=== PATIENT | male | born 1980 | race African-American/Black ===

== ENCOUNTER → 2022-03-16 | Emergency (ER) | payer SELFPAY | END | disposition left against medical advice (07) | LOC: ER 15:52 | DX: R52 Pain, unspecified (principal); Z53.21 Procedure and treatment not carried out due to patient leaving prior to being seen by health care provider ==

== ENCOUNTER 2022-06-11 11:25 | Emergency (ER) | payer SELFPAY ==
[~2022-06-11] VITALS: Ht 175.3 cm; Wt 65.4 kg
[2022-06-11 12:07] LABS: Basophils # (auto) 0.1 10 ^3/uL (0-0.2); Eosinophils # (auto) 0 10 ^3/uL (0-0.8); Eosinophils % (auto) 0.3 % (0.0-7.0); Mean Corpuscular Volume 105.1 fL (80.0-100.0)
[2022-06-11 12:09] LABS: Basophils % (auto) 0.5 % (0.0-2.0); Hematocrit 48.8 % (41.0-53.0); Hemoglobin 17.6 g/dL (13.5-17.5); Lymphocytes # (auto) 5.4 10 ^3/uL (0.4-5.4); Lymphocytes % (auto) 35.3 % (10.0-50.0); Mean Corpuscular Hemoglobin 37.8 pg (28.0-32.0); Monocytes # (auto) 1.3 10 ^3/uL (0-1.3); Monocytes % (auto) 8.4 % (0.0-12.0); Neutrophils # (auto) 8.4 10 ^3/uL (1.6-8.6); Neutrophils % (auto) 55.5 % (37.0-80.0); Nucleated Red Blood Cells % 0.2 %; Red Blood Cells 4.65 10^6/uL (4.5-5.90); White Blood Cell 15.2 10^3/uL (4.4-10.8)
[2022-06-11 12:19] LABS: Albumin 1.8 g/dL (3.4-5.0); Calcium 6.9 mg/dL (8.5-10.1); Potassium 3.2 mmol/L (3.5-5.1)
[2022-06-11 12:23] LABS: Lactic Acid w/Reflex 2.1 mmol/L (0.4-2.0)
[2022-06-11 12:24] LABS: BUN/Creatinine Ratio 9.8; Bilirubin, Total 2.9 mg/dL (0.2-1.0)
[2022-06-11 14:15] LABS: Urine Bacteria NONE SEEN /hpf (None Seen); Urine Blood Negative /uL (Negative); Urine Hyaline Cast FEW /lpf (0 - 2); Urine Specific Gravity 1.021 (1.001-1.035); Urine WBC 17 /hpf (0 - 3)
[2022-06-11 14:17] LABS: Alcohol, Urine < 3.0 mg/dL (0-10); Amphetamine Screen, Urine NEGATIVE (NEGATIVE); Barbiturate Scree,Urine NEGATIVE (NEGATIVE); Benzodiazephine Screen, Urine NEGATIVE (NEGATIVE); Cannabinoid Screen, Urine NEGATIVE (NEGATIVE); Cocaine Screen, Urine NEGATIVE (NEGATIVE); Opiate Scree,Urine NEGATIVE (NEGATIVE); Phencyclidine Screen, Urine NEGATIVE (NEGATIVE)
[2022-06-11 15:11] VITALS: BP 101/66
== END 2022-06-11 15:13 | disposition home or self-care (01) ==
LOC: ER 11:25
DX: R10.13 Epigastric pain (principal); F10.90 Alcohol use, unspecified, uncomplicated
CPT/HCPCS: 36415; 74176; 80053; 80307; 81001; 83605; 83690; 85025

== ENCOUNTER → 2022-06-25 | Emergency (ER) | payer SELFPAY ==
[~2022-06-25] VITALS: Ht 175.3 cm; Wt 62.3 kg
[~2022-06-25] MED LIST: COLC1CAP PO; INDO50CA82 PO; KETOROLAC TROMETH 60MG/2ML VIAL IM ONE
[2022-06-25 14:14] VITALS: BP 122/75
== END | disposition home or self-care (01) ==
LOC: ER 13:15
DX: M10.9 Gout, unspecified (principal)
CPT/HCPCS: 73630; 96372; 99283; J1885

== ENCOUNTER 2022-10-27 16:34 | Emergency (ER) | payer MEDICAID, OTHER ==
[~2022-10-27] VITALS: Ht 175.3 cm; Wt 63.9 kg
[~2022-10-27 16:34] MED LIST changes: -KETOROLAC TROMETH 60MG/2ML VIAL IM ONE
[2022-10-27 17:43] VITALS: BP 116/72
[2022-10-27] MEDS ORDERED: cefTRIAXone SOD 1,000 MG VL IM ONE (18:00)
== END 2022-10-27 18:21 | disposition home or self-care (01) ==
LOC: ER 16:34
DX: L02.01 Cutaneous abscess of face (principal); Z88.6 Allergy status to analgesic agent
CPT/HCPCS: 96372; 99283; J0696

== ENCOUNTER 2022-10-29 20:30 | Emergency (ER) | payer MEDICAID ==
[~2022-10-29] VITALS: Ht 175.3 cm; Wt 63.0 kg
[2022-10-30 02:08] VITALS: BP 110/72
== END 2022-10-30 03:35 | disposition home or self-care (01) ==
LOC: ER 20:30
DX: L02.01 Cutaneous abscess of face (principal); M10.9 Gout, unspecified; Z79.899 Other long term (current) drug therapy

== ENCOUNTER 2023-06-02 14:09 | Emergency (ER) | payer MEDICAID ==
[~2023-06-02] VITALS: Ht 170.2 cm; Wt 65.0 kg
[2023-06-02] MEDS ORDERED: SODIUM CHLORIDE 0.9% 1,000 ML IVB ONE (14:15)
[2023-06-02 14:36] VITALS: BP 122/77; PULSE 80; RESP 18; TEMP 97.7; O2SAT 97
[2023-06-02 14:50] LABS: Basophils # (auto) 0.1 10 ^3/uL (0-0.2); Eosinophils # (auto) 0.1 10 ^3/uL (0-0.8); Monocytes # (auto) 0.7 10 ^3/uL (0-1.3)
[2023-06-02 14:51] LABS: Basophils % (auto) 1.2 % (0.0-2.0); Eosinophils % (auto) 1.1 % (0.0-7.0); Hematocrit 33.2 % (41.0-53.0); Hemoglobin 11.4 g/dL (13.5-17.5); Lymphocytes # (auto) 5.1 10 ^3/uL (0.4-5.4); Lymphocytes % (auto) 43.3 % (10.0-50.0); Mean Corpuscular Hemoglobin 37.9 pg (28.0-32.0); Mean Corpuscular Hgb Conc. 34.3 g/dL (32.0-36.0); Mean Corpuscular Volume 110.4 fL (80.0-100.0); Monocytes % (auto) 5.8 % (0.0-12.0); Neutrophils # (auto) 5.7 10 ^3/uL (1.6-8.6); Neutrophils % (auto) 48.6 % (37.0-80.0); Nucleated Red Blood Cells % 0.1 %; Red Cell Distribution Width 14.7 % (11.8-14.3); White Blood Cell 11.7 10^3/uL (4.4-10.8)
[2023-06-02 15:03] LABS: INR 1.3 (0.9-1.15); Partial Thromboplastin Time 34.5 SEC (24.5-34.5); Prothrombin Time 13.4 sec (9.3-11.8)
[2023-06-02 15:37] LABS: Alanine Aminotransferase 26 U/L (7-40); Albumin 2.7 g/dL (3.2-4.8); Alkaline Phosphatase 294 U/L (46-116); Anion Gap 5 (5-15); Aspartate Aminotransferase 80 U/L (13-40); Bilirubin, Total 2.5 mg/dL (0.2-1.0); Calcium 7.7 mg/dL (8.5-10.1); Carbon Dioxide 26 mmol/L (20-30); Chloride 111 mmol/L (98-107); Glucose 96 mg/dL (74-106); Potassium 3.5 mmol/L (3.5-5.1); Sodium 142 mmol/L (136-145)
[2023-06-02 15:38] LABS: Total Protein 7.6 g/dL (5.7-8.2)
[2023-06-02 15:45] LABS: Blood Alcohol 318.5 mg/dL (<10)
[2023-06-02 15:53] LABS: BUN/Creatinine Ratio 9.1 (10.0-20.0); Blood Urea Nitrogen < 5 mg/dL (9-23)
[2023-06-02 16:11] LABS: Magnesium 1.5 mg/dL (1.6-2.6)
== END 2023-06-02 16:34 | disposition left against medical advice (07) ==
LOC: EDBD 14:09 → ER 14:09
DX: R55 Syncope and collapse (principal); R42 Dizziness and giddiness; Z91.02 Food additives allergy status
CPT/HCPCS: 36415; 70450; 71045; 80053; 80320; 82140; 83735; 84484; 85025; 85610; 85730; 93005; 96360; 99285; J7030

== ENCOUNTER 2023-06-13 14:09 | Inpatient (IN) | payer MEDICAID ==
[~2023-06-13] VITALS: Ht 175.3 cm; Wt 66.2 kg
[2023-06-13 14:10] VITALS: BP 128/73; PULSE 98; RESP 16; O2SAT 97
[2023-06-13 15:28] LABS: Basophils # (auto) 0.1 10 ^3/uL (0-0.2); Basophils % (auto) 1.1 % (0.0-2.0); Eosinophils # (auto) 0.1 10 ^3/uL (0-0.8); Eosinophils % (auto) 1.1 % (0.0-7.0); Hematocrit 35.7 % (41.0-53.0); Hemoglobin 12.4 g/dL (13.5-17.5); Lymphocytes # (auto) 5.4 10 ^3/uL (0.4-5.4); Lymphocytes % (auto) 42.9 % (10.0-50.0); Mean Corpuscular Hemoglobin 37.9 pg (28.0-32.0); Mean Corpuscular Hgb Conc. 34.7 g/dL (32.0-36.0); Mean Corpuscular Volume 109.2 fL (80.0-100.0); Monocytes # (auto) 0.7 10 ^3/uL (0-1.3); Monocytes % (auto) 5.8 % (0.0-12.0); Neutrophils # (auto) 6.2 10 ^3/uL (1.6-8.6); Neutrophils % (auto) 49.1 % (37.0-80.0); Red Blood Cells 3.27 10^6/uL (4.5-5.90); Red Cell Distribution Width 13.9 % (11.8-14.3); White Blood Cell 12.6 10^3/uL (4.4-10.8)
[2023-06-13 15:43] LABS: INR 1.27 (0.9-1.15); Partial Thromboplastin Time 34.8 SEC (24.5-34.5); Prothrombin Time 13.1 sec (9.3-11.8)
[2023-06-13 15:47] LABS: Alanine Aminotransferase 21 U/L (7-40); Albumin 3.1 g/dL (3.2-4.8); Alkaline Phosphatase 338 U/L (46-116); Anion Gap 3 (5-15); Aspartate Aminotransferase 80 U/L (13-40); Calcium 8.2 mg/dL (8.7-10.4); Carbon Dioxide 31 mmol/L (20-30); Chloride 105 mmol/L (98-107); Glucose 117 mg/dL (74-106); Lipase 73 U/L (12-53); Potassium 3.2 mmol/L (3.5-5.1); Sodium 139 mmol/L (136-145)
[2023-06-13 15:48] LABS: Bilirubin, Total 3.2 mg/dL (0.2-1.0); Total Protein 8.5 g/dL (5.7-8.2)
[2023-06-13 15:52] LABS: BUN/Creatinine Ratio 7.6 (10.0-20.0); Blood Urea Nitrogen < 5 mg/dL (9-23)
[2023-06-13] MEDS ORDERED: POTASSIUM EFFERVESENT TAB 25 MEQ PO ONE (17:15)
[2023-06-13] MEDS ORDERED: SODIUM CHLORIDE 0.9% 1,000 ML IV SCH (17:15)
[2023-06-13] MEDS ORDERED: MULTIPLE VITAMIN TAB PO ONE (17:15)
[2023-06-13] MEDS ORDERED: ONDANSETRON HCL 4 MG/2 ML VIAL IV PRN (17:15)
[2023-06-13] MEDS ORDERED: THIAMINE HCL 100 MG TAB PO ONE (17:15)
[2023-06-13] MEDS ORDERED: LORazepam 2MG/ML-1ML VIAL IV PRN (17:15)
[2023-06-13] MEDS ORDERED: DOCUSATE SOD 100 MG CAP PO PRN (17:15)
[2023-06-13] MEDS ORDERED: FOLIC ACID 1 MG TAB PO ONE (17:15)
[2023-06-13] MEDS ORDERED: ACETAMINOPHEN 325 MG TAB PO PRN (17:15)
[2023-06-13] MEDS ORDERED: PANTOPRAZOLE 40 MG/10 ML VIAL INJ IV ONE (17:30)
[2023-06-14] MEDS ORDERED: FOLIC ACID 1 MG TAB PO SCH (10:00)
[2023-06-14] MEDS ORDERED: LACTULOSE 20Gm/30ML SOLN PO SCH (10:00)
[2023-06-14] MEDS ORDERED: THIAMINE HCL 100 MG TAB PO SCH (10:00)
[2023-06-14] MEDS ORDERED: MULTIPLE VITAMIN TAB PO SCH (10:00)
[2023-06-14] MEDS ORDERED: PANTOPRAZOLE 40 MG/10 ML VIAL INJ IV SCH (10:00)
== END 2023-06-14 00:07 | disposition left against medical advice (07) | DRG 282 ==
LOC: ER 14:09 → OVERFLOW 17:24
PROVIDERS: ADMIT Nurse Practitioner Family; ATTEND Nurse Practitioner Family
DX: K85.20 Alcohol induced acute pancreatitis without necrosis or infection (principal); R18.8 Other ascites; K74.60 Unspecified cirrhosis of liver; R16.0 Hepatomegaly, not elsewhere classified; F17.210 Nicotine dependence, cigarettes, uncomplicated; F10.10 Alcohol abuse, uncomplicated; E87.6 Hypokalemia; Z91.018 Allergy to other foods; Z71.41 Alcohol abuse counseling and surveillance of alcoholic
CPT/HCPCS: 36415; 76705; 80053; 82140; 83690; 83735; 85025; 85610; 85730; G0378

== ENCOUNTER 2023-09-08 22:03 | Inpatient (IN) | payer MEDICAID ==
[~2023-09-08] VITALS: Ht 175.3 cm; Wt 86.0 kg
[2023-09-08 22:56] LABS: Hemoglobin 7.8 g/dL (13.5-17.5)
[2023-09-08 22:57] LABS: Alkaline Phosphatase 241 U/L (46-116); Anion Gap 10 (5-15); Aspartate Aminotransferase 34 U/L (13-40); BUN/Creatinine Ratio 5.4 (10.0-20.0); Blood Urea Nitrogen 10 mg/dL (9-23); Calcium 7.4 mg/dL (8.5-10.1); Carbon Dioxide 21 mmol/L (20-30); Chloride 105 mmol/L (98-107); Glucose 131 mg/dL (74-106); Potassium 3.3 mmol/L (3.5-5.1); Sodium 136 mmol/L (136-145)
[2023-09-08 22:57] LABS: Basophils # (auto) 0.1 10 ^3/uL (0-0.2); Basophils % (auto) 0.6 % (0.0-2.0); Eosinophils # (auto) 0.1 10 ^3/uL (0-0.8); Eosinophils % (auto) 0.9 % (0.0-7.0); Hematocrit 23.9 % (41.0-53.0); Lymphocytes # (auto) 3.7 10 ^3/uL (0.4-5.4); Lymphocytes % (auto) 24.2 % (10.0-50.0); Mean Corpuscular Hemoglobin 33.4 pg (28.0-32.0); Mean Corpuscular Hgb Conc. 32.5 g/dL (32.0-36.0); Monocytes # (auto) 1.9 10 ^3/uL (0-1.3); Monocytes % (auto) 12.4 % (0.0-12.0); Neutrophils # (auto) 9.5 10 ^3/uL (1.6-8.6); Neutrophils % (auto) 61.9 % (37.0-80.0); Nucleated Red Blood Cells % 0.1 %; Red Blood Cells 2.32 10^6/uL (4.5-5.90); White Blood Cell 15.3 10^3/uL (4.4-10.8)
[2023-09-08 22:58] LABS: Bilirubin, Total 6.1 mg/dL (0.2-1.0); Total Protein 6.6 g/dL (5.7-8.2)
[2023-09-08 22:59] LABS: Alanine Aminotransferase < 9 U/L (7-40)
[2023-09-08 23:00] LABS: Lactic Acid w/Reflex 5.7 mmol/L (0.4-2.0)
[2023-09-08 23:01] LABS: Red Cell Distribution Width 23.2 % (11.8-14.3)
[2023-09-08 23:13] LABS: Lipase 45 U/L (12-53)
[2023-09-08] MEDS ORDERED: POTASSIUM CHLORIDE 40 MEQ, LIDOCAINE 1% (LOCAL ANESTH.) 4 ML in SODIUM CHL 0.9% 250 ML IV ONE (23:15)
[2023-09-08] MEDS ORDERED: cefTRIAXone 1GM/50ML D5W 50 ML IV ONE (23:15)
[2023-09-08] MEDS: HYDROcodone-ACET 10/325MG TAB PO ONE (23:20)
[2023-09-09] VITALS (8 sets, daily range): BP systolic 99–109; BP diastolic 63–77; PULSE 89–100; RESP 17–24; TEMP 97.5–97.7; O2SAT 95–97
[2023-09-09 00:27] LABS: % Iron Saturation 39.4 % (20-55)
[2023-09-09] MEDS: POTASSIUM EFFERVESENT TAB 25 MEQ PO ONE (00:49)
[2023-09-09] MEDS: LACTULOSE 20Gm/30ML SOLN PO ONE (00:50)
[2023-09-09] MEDS: POTASSIUM CHL 20MEQ/100ML 100 ML IV ONE (00:52)
[2023-09-09] MEDS: levoFLOXacin 250 MG TAB PO ONE (01:15)
[2023-09-09] MEDS ORDERED: DOCUSATE SOD 100 MG CAP PO PRN (04:00)
[2023-09-09] MEDS ORDERED: DEXTROSE (50%) 50ML SYRG IV PRN (04:00)
[2023-09-09] MEDS ORDERED: ONDANSETRON HCL 4 MG/2 ML VIAL IV PRN (04:00)
[2023-09-09 05:37] LABS: Basophils # (auto) 0.1 10 ^3/uL (0-0.2); White Blood Cell 13.1 10^3/uL (4.4-10.8)
[2023-09-09 05:41] LABS: Basophils % (auto) 0.8 % (0.0-2.0); Eosinophils # (auto) 0.1 10 ^3/uL (0-0.8); Eosinophils % (auto) 0.8 % (0.0-7.0); Lymphocytes # (auto) 3.2 10 ^3/uL (0.4-5.4); Lymphocytes % (auto) 24.2 % (10.0-50.0); Mean Corpuscular Hemoglobin 33.6 pg (28.0-32.0); Mean Corpuscular Hgb Conc. 33.8 g/dL (32.0-36.0); Mean Corpuscular Volume 99.6 fL (80.0-100.0); Monocytes # (auto) 1.6 10 ^3/uL (0-1.3); Monocytes % (auto) 12.3 % (0.0-12.0); Neutrophils # (auto) 8.1 10 ^3/uL (1.6-8.6); Neutrophils % (auto) 61.9 % (37.0-80.0); Nucleated Red Blood Cells % 0.1 %
[2023-09-09 05:51] LABS: Albumin 1.7 g/dL (3.2-4.8); Alkaline Phosphatase 209 U/L (46-116); Anion Gap 7 (5-15); Aspartate Aminotransferase 31 U/L (13-40); BUN/Creatinine Ratio 6.4 (10.0-20.0); Blood Urea Nitrogen 12 mg/dL (9-23); Calcium 7.3 mg/dL (8.5-10.1); Carbon Dioxide 24 mmol/L (20-30); Chloride 105 mmol/L (98-107); Glucose 102 mg/dL (74-106); Potassium 4.3 mmol/L (3.5-5.1); Sodium 136 mmol/L (136-145); Total Protein 6.1 g/dL (5.7-8.2)
[2023-09-09 05:54] LABS: Red Cell Distribution Width 22.7 % (11.8-14.3)
[2023-09-09 05:55] LABS: Hemoglobin 6.7 g/dL (13.5-17.5)
[2023-09-09] MEDS ORDERED: MORPHINE SULFATE INJ 2 MG/ml SYRG IV PRN (06:00)
[2023-09-09] MEDS ORDERED: NITROGLYCERIN 0.4 MG SL TAB SL PRN (06:00)
[2023-09-09] MEDS: CALCIUM GLUC 1,000mg/50ml-NS 50 ML IV ONE (06:05)
[2023-09-09 06:11] LABS: Alanine Aminotransferase < 9 U/L (7-40)
[2023-09-09] MEDS: metroNIDAZOLE 500MG/100ML 100 ML IV SCH (06:28)
[2023-09-09] MEDS: InsuLIN REG 1unit/0.01ml Soln (100units/ml) SC SCH (07:00)
[2023-09-09] MEDS: ACCU-CHEK COMFORT CURVE STRIP VI SCH (07:27)
[2023-09-09] MEDS: ALBUMIN 25% 100 ML IV ONE (08:05)
[2023-09-09] MEDS: FAMOTIDINE (10MG/ML) 2ML VL IV SCH (10:35)
[2023-09-09] MEDS: levoFLOXacin 500MG 100 ML IV SCH (10:35)
[2023-09-09] MEDS: LACTULOSE 20Gm/30ML SOLN PO SCH (10:35)
[2023-09-09] MEDS: SPIRONOLACTONE 25 MG TAB PO SCH (10:35)
[2023-09-09 14:21] LABS: Hematocrit 29.1 % (41.0-53.0); Hemoglobin 9.7 g/dL (13.5-17.5)
[2023-09-10] VITALS (7 sets, daily range): BP systolic 92–107; BP diastolic 59–72; PULSE 84–118; RESP 17–22; TEMP 97.5–98.5; O2SAT 95–98
[2023-09-10 05:38] LABS: Basophils # (auto) 0.1 10 ^3/uL (0-0.2); Basophils % (auto) 0.9 % (0.0-2.0); Eosinophils # (auto) 0 10 ^3/uL (0-0.8); Eosinophils % (auto) 0.3 % (0.0-7.0); Hematocrit 26.5 % (41.0-53.0); Hemoglobin 8.8 g/dL (13.5-17.5); Lymphocytes # (auto) 2.4 10 ^3/uL (0.4-5.4); Lymphocytes % (auto) 15.2 % (10.0-50.0); Mean Corpuscular Hemoglobin 32.7 pg (28.0-32.0); Mean Corpuscular Hgb Conc. 33.4 g/dL (32.0-36.0); Mean Corpuscular Volume 98.1 fL (80.0-100.0); Monocytes # (auto) 1.7 10 ^3/uL (0-1.3); Monocytes % (auto) 10.7 % (0.0-12.0); Neutrophils # (auto) 11.4 10 ^3/uL (1.6-8.6); Neutrophils % (auto) 72.9 % (37.0-80.0); Red Cell Distribution Width 20.5 % (11.8-14.3); White Blood Cell 15.6 10^3/uL (4.4-10.8)
[2023-09-10 06:10] LABS: Albumin 1.9 g/dL (3.2-4.8); Alkaline Phosphatase 177 U/L (46-116); Anion Gap 5 (5-15); Aspartate Aminotransferase 32 U/L (13-40); Blood Urea Nitrogen 15 mg/dL (9-23); Calcium 7.7 mg/dL (8.5-10.1); Carbon Dioxide 26 mmol/L (20-30); Chloride 106 mmol/L (98-107); Glucose 102 mg/dL (74-106); Potassium 4.8 mmol/L (3.5-5.1); Sodium 137 mmol/L (136-145)
[2023-09-10 06:11] LABS: Bilirubin, Total 10.3 mg/dL (0.2-1.0); Total Protein 6.1 g/dL (5.7-8.2)
[2023-09-10 06:22] LABS: Alanine Aminotransferase < 9 U/L (7-40)
[2023-09-10 07:56] LABS: BUN/Creatinine Ratio 7.5 (10.0-20.0)
[2023-09-10] MEDS ORDERED: PANT40T PO (16:10)
[2023-09-10] MEDS: HYDROcodone-ACET 5/325MG TAB PO PRN (22:10)
[2023-09-11] VITALS (9 sets, daily range): BP systolic 87–148; BP diastolic 46–62; PULSE 93–108; RESP 17–20; TEMP 97.9–98.7; O2SAT 96–98
[2023-09-11 10:28] LABS: Basophils # (auto) 0.1 10 ^3/uL (0-0.2); Eosinophils # (auto) 0.1 10 ^3/uL (0-0.8); Hemoglobin 8.3 g/dL (13.5-17.5); Red Blood Cells 2.52 10^6/uL (4.5-5.90); White Blood Cell 12.1 10^3/uL (4.4-10.8)
[2023-09-11 10:32] LABS: Basophils % (auto) 0.5 % (0.0-2.0); Eosinophils % (auto) 0.5 % (0.0-7.0); Hematocrit 24.7 % (41.0-53.0); Lymphocytes # (auto) 2.2 10 ^3/uL (0.4-5.4); Lymphocytes % (auto) 18.4 % (10.0-50.0); Mean Corpuscular Hgb Conc. 33.6 g/dL (32.0-36.0); Mean Corpuscular Volume 98.3 fL (80.0-100.0); Monocytes # (auto) 1.3 10 ^3/uL (0-1.3); Monocytes % (auto) 10.4 % (0.0-12.0); Neutrophils # (auto) 8.5 10 ^3/uL (1.6-8.6); Neutrophils % (auto) 70.2 % (37.0-80.0); Nucleated Red Blood Cells % 0.2 %; Red Cell Distribution Width 20.6 % (11.8-14.3)
[2023-09-11 11:13] LABS: Ferritin 347.3 ng/mL (22-322)
[2023-09-11 11:17] LABS: Hepatitis B Surface Antigen Negative (Negative)
[2023-09-11 11:38] LABS: Hepatitis C Antibody Negative (Negative)
[2023-09-11 13:07] LABS: Body Fluid Polymorphonuclear 3 % (0-25); Body Fluid Red Blood Cells 653 CUMM (0-2000); Body Fluid White Blood Cells 40 CUMM (0-200)
[2023-09-11] MEDS: SODIUM CHLORIDE 0.9% 250 ML IV ONE (16:06)
[2023-09-12 01:00] VITALS: BP 128/53; PULSE 104; RESP 18; TEMP 97.7; O2SAT 97
[2023-09-12 05:00] VITALS: BP 112/51; PULSE 99; RESP 18; TEMP 98; O2SAT 96
[2023-09-12 06:24] LABS: Basophils # (auto) 0.1 10 ^3/uL (0-0.2); Eosinophils # (auto) 0.1 10 ^3/uL (0-0.8); Mean Corpuscular Hemoglobin 33.3 pg (28.0-32.0); Mean Corpuscular Volume 99.3 fL (80.0-100.0); Monocytes # (auto) 1.3 10 ^3/uL (0-1.3)
[2023-09-12 06:27] LABS: Basophils % (auto) 0.6 % (0.0-2.0); Eosinophils % (auto) 0.8 % (0.0-7.0); Hematocrit 22.9 % (41.0-53.0); Hemoglobin 7.7 g/dL (13.5-17.5); Lymphocytes # (auto) 2.4 10 ^3/uL (0.4-5.4); Lymphocytes % (auto) 17.3 % (10.0-50.0); Mean Corpuscular Hgb Conc. 33.6 g/dL (32.0-36.0); Monocytes % (auto) 9.2 % (0.0-12.0); Neutrophils # (auto) 10.2 10 ^3/uL (1.6-8.6); Neutrophils % (auto) 72.1 % (37.0-80.0); Red Blood Cells 2.31 10^6/uL (4.5-5.90); Red Cell Distribution Width 19.9 % (11.8-14.3); White Blood Cell 14.1 10^3/uL (4.4-10.8)
[2023-09-12 08:00] VITALS: PULSE 94
[2023-09-12 09:00] VITALS: BP 116/50; PULSE 95; RESP 17; TEMP 98.1; O2SAT 96
[2023-09-12] MEDS ORDERED: PANT40T PO (10:57)
[2023-09-12] MEDS ORDERED: SPIR25TA PO (10:57)
[2023-09-12] MEDS ORDERED: LACT10SO3 PO (10:57)
[2023-09-12 12:57] VITALS: BP 116/50; PULSE 95; RESP 17; TEMP 98.1; O2SAT 96
[2023-09-12 13:00] VITALS: BP 130/54; PULSE 96; RESP 18; TEMP 97.8; O2SAT 97
[2023-09-13 10:06] LABS: Protein, Body Fluid 1.4 g/dL (.)
== END 2023-09-12 14:45 | disposition home or self-care (01) | DRG 280 ==
LOC: ER 22:03 → EDBD 22:03 → TELE 09-09 05:59 → TELE-CENTR 09-10 15:50
PROVIDERS: ADMIT Nurse Practitioner Family; ATTEND Internal Medicine
PROC: 30233N1 Transfusion of Nonautologous Red Blood Cells into Peripheral Vein, Percutaneous Approach (ICD-10-PCS; principal; 2023-09-09)
PROC: 0W9G3ZZ Drainage of Peritoneal Cavity, Percutaneous Approach (ICD-10-PCS; 2023-09-11)
DX: K70.31 Alcoholic cirrhosis of liver with ascites (principal); N17.9 Acute kidney failure, unspecified; E43 Unspecified severe protein-calorie malnutrition; E87.20 Acidosis, unspecified; D69.6 Thrombocytopenia, unspecified; D64.9 Anemia, unspecified; D72.829 Elevated white blood cell count, unspecified; F10.10 Alcohol abuse, uncomplicated; R79.89 Other specified abnormal findings of blood chemistry; E87.6 Hypokalemia; F17.210 Nicotine dependence, cigarettes, uncomplicated; E80.6 Other disorders of bilirubin metabolism; Z88.0 Allergy status to penicillin; Z91.018 Allergy to other foods; Z68.28 Body mass index [BMI] 28.0-28.9, adult
CPT/HCPCS: 36415; 49083; 71250; 74176; 76700; 76942; 80053; 82140; 82607; 82728; 82746; 82962; 83540; 83550; 83605; 83615; 83690; 83880; 83986; 84484; 85014; 85018; 85025; 85045; 86803; 86850; 86900; 86901; 86920; 87205; 87340; 89051; 96365; 96367; G0378; J1815; J1956; J2001; J3480; J3490; P9047

== ENCOUNTER 2023-09-20 12:06 | Inpatient (IN) | payer MEDICAID ==
[~2023-09-20] VITALS: Ht 175.3 cm; Wt 83.7 kg
[~2023-09-20 12:06] MED LIST changes: -COLC1CAP PO; -INDO50CA82 PO; +LACT10SO3 PO; +PANT40T PO; +SPIR25TA PO
[2023-09-20 13:06] LABS: Basophils # (auto) 0.2 10 ^3/uL (0-0.2); Basophils % (auto) 1.2 % (0.0-2.0); Eosinophils # (auto) 0.1 10 ^3/uL (0-0.8); Eosinophils % (auto) 0.5 % (0.0-7.0); Hemoglobin 8.3 g/dL (13.5-17.5); Mean Corpuscular Hemoglobin 33.7 pg (28.0-32.0)
[2023-09-20 13:08] LABS: Hematocrit 24.9 % (41.0-53.0); Lymphocytes % (auto) 23.2 % (10.0-50.0); Mean Corpuscular Hgb Conc. 33.5 g/dL (32.0-36.0); Mean Corpuscular Volume 100.6 fL (80.0-100.0); Monocytes # (auto) 1.8 10 ^3/uL (0-1.3); Monocytes % (auto) 10.4 % (0.0-12.0); Neutrophils # (auto) 11.1 10 ^3/uL (1.6-8.6); Neutrophils % (auto) 64.7 % (37.0-80.0); Nucleated Red Blood Cells % 0.1 %; Red Blood Cells 2.47 10^6/uL (4.5-5.90); Red Cell Distribution Width 22.1 % (11.8-14.3); White Blood Cell 17.1 10^3/uL (4.4-10.8)
[2023-09-20 13:24] LABS: Albumin 2.3 g/dL (3.2-4.8); Alkaline Phosphatase 225 U/L (46-116); Anion Gap 5 (5-15); Aspartate Aminotransferase 30 U/L (13-40); BUN/Creatinine Ratio 14.9 (10.0-20.0); Bilirubin, Total 3.9 mg/dL (0.2-1.0); Blood Urea Nitrogen 10 mg/dL (9-23); Calcium 7.7 mg/dL (8.5-10.1); Carbon Dioxide 25 mmol/L (20-30); Chloride 108 mmol/L (98-107); Glucose 115 mg/dL (74-106); Potassium 3.8 mmol/L (3.5-5.1); Sodium 138 mmol/L (136-145); Total Protein 6.9 g/dL (5.7-8.2)
[2023-09-20 13:28] LABS: Alanine Aminotransferase 9 U/L (7-40)
[2023-09-20] MEDS: FUROSEMIDE 40 MG/4 ML VIAL IV ONE (15:53)
[2023-09-20] MEDS: cefTRIAXone 2GM/50ML D5W 50 ML IV ONE (16:04)
[2023-09-20 16:07] LABS: Lactic Acid w/Reflex 2.3 mmol/L (0.4-2.0)
[2023-09-20 16:34] LABS: INR 1.55 (0.9-1.15); Partial Thromboplastin Time 36.4 SEC (24.5-34.5); Prothrombin Time 15.9 sec (9.3-11.8)
[2023-09-20] MEDS ORDERED: FERR325T20 PO (17:12)
[2023-09-20] MEDS ORDERED: PROP1TAB51 PO (17:12)
[2023-09-20] MEDS ORDERED: SPIR25TA8 PO (17:12)
[2023-09-20 17:15] VITALS: PULSE 84; RESP 18; O2SAT 98
[2023-09-20] MEDS ORDERED: HYDROcodone-ACET 5/325MG TAB PO PRN (17:15)
[2023-09-20] MEDS ORDERED: ALBUTEROL SULF 2.5 MG/0.5ML(0.5%) NEB SOLN NEB PRN (17:15)
[2023-09-20] MEDS ORDERED: MORPHINE SULFATE INJ 2 MG/ml SYRG IV PRN (17:15)
[2023-09-20] MEDS ORDERED: ACETAMINOPHEN 325 MG TAB PO PRN ×2 (17:15)
[2023-09-20] MEDS: ALBUMIN 25% 100 ML IV ONE (18:23)
[2023-09-20] MEDS: NICOTINE 7MG/24HR TOPICAL PATCH TD ONE (18:30)
[2023-09-20] MEDS: PANTOPRAZOLE 40 MG/10 ML VIAL INJ IV ONE (18:32)
[2023-09-20] MEDS: AZITHROMYCIN 500MG/ 250ML 250 ML IV ONE (18:32)
[2023-09-20 19:45] VITALS: PULSE 94; RESP 17; O2SAT 96
[2023-09-20 20:54] VITALS: O2SAT 94
[2023-09-20 21:18] VITALS: BP 96/54; PULSE 80; RESP 18; TEMP 99.9; O2SAT 100
[2023-09-20] MEDS: PROPRANOLOL HCL 20 MG TAB PO SCH (22:00)
[2023-09-20 22:37] VITALS: BP 99/56; PULSE 85; PULSE 86; RESP 18; TEMP 98.6; O2SAT 100
[2023-09-20] MEDS: LACTULOSE 20Gm/30ML SOLN PO SCH (22:39)
[2023-09-20] MEDS ORDERED: CEPH500C PO (23:44)
[2023-09-20] MEDS ORDERED: SENN-105 PO (23:44)
[2023-09-20] MEDS ORDERED: ASCO500T6 PO (23:44)
[2023-09-21] VITALS (11 sets, daily range): BP systolic 85–114; BP diastolic 47–62; PULSE 63–91; RESP 14–20; TEMP 98.2–98.8; O2SAT 92–100
[2023-09-21] MEDS: SOD CHL 0.45% 1,000 ML IV SCH (03:11)
[2023-09-21] MEDS ORDERED: SOD CHL 0.45% 1,000 ML IV SCH (04:00)
[2023-09-21 07:38] LABS: Basophils # (auto) 0.2 10 ^3/uL (0-0.2); Basophils % (auto) 1.3 % (0.0-2.0); Eosinophils # (auto) 0.1 10 ^3/uL (0-0.8); Eosinophils % (auto) 0.6 % (0.0-7.0); Hematocrit 21.2 % (41.0-53.0); Hemoglobin 7.3 g/dL (13.5-17.5); Lymphocytes # (auto) 2.5 10 ^3/uL (0.4-5.4); Lymphocytes % (auto) 21.6 % (10.0-50.0); Mean Corpuscular Hemoglobin 34.2 pg (28.0-32.0); Mean Corpuscular Hgb Conc. 34.6 g/dL (32.0-36.0); Monocytes # (auto) 1.3 10 ^3/uL (0-1.3); Monocytes % (auto) 10.9 % (0.0-12.0); Neutrophils # (auto) 7.5 10 ^3/uL (1.6-8.6); Neutrophils % (auto) 65.6 % (37.0-80.0); Red Blood Cells 2.14 10^6/uL (4.5-5.90); Red Cell Distribution Width 22.6 % (11.8-14.3); White Blood Cell 11.5 10^3/uL (4.4-10.8)
[2023-09-21 07:50] LABS: Albumin 2.2 g/dL (3.2-4.8); Alkaline Phosphatase 163 U/L (46-116); Anion Gap 8 (5-15); Aspartate Aminotransferase 29 U/L (13-40); BUN/Creatinine Ratio 14.7 (10.0-20.0); Blood Urea Nitrogen 10 mg/dL (9-23); Calcium 7.8 mg/dL (8.7-10.4); Carbon Dioxide 26 mmol/L (20-30); Chloride 107 mmol/L (98-107); Glucose 110 mg/dL (74-106); Sodium 141 mmol/L (136-145)
[2023-09-21 07:51] LABS: Alanine Aminotransferase < 9 U/L (7-40); Total Protein 6.2 g/dL (5.7-8.2)
[2023-09-21] MEDS: FERROUS SULFATE 325mg EC TAB PO SCH (10:00)
[2023-09-21] MEDS: NICOTINE 7MG/24HR TOPICAL PATCH TD SCH (10:00)
[2023-09-21] MEDS: SPIRONOLACTONE 25 MG TAB PO SCH ×2 (10:00→19:20)
[2023-09-21] MEDS: cefTRIAXone 1GM/50ML D5W 50 ML IV SCH (11:52)
[2023-09-21] MEDS: PANTOPRAZOLE 40 MG/10 ML VIAL INJ IV SCH (11:52)
[2023-09-21] MEDS: AZITHROMYCIN 500MG/ 250ML 250 ML IV SCH (11:52)
[2023-09-21 12:22] LABS: Body Fluid Polymorphonuclear 23 % (0-25); Body Fluid Red Blood Cells 133 CUMM (0-2000); Body Fluid White Blood Cells 63 CUMM (0-200)
[2023-09-21] MEDS: ALBUMIN 25% 100 ML IV SCH (18:30)
[2023-09-21] MEDS: FUROSEMIDE 40 MG TAB PO ONE (19:21)
[2023-09-21] MEDS: PROPRANOLOL HCL 20 MG TAB PO SCH (22:00)
[2023-09-22] VITALS (18 sets, daily range): BP systolic 82–108; BP diastolic 39–64; PULSE 67–99; RESP 14–20; TEMP 98–99.9; O2SAT 95–99
[2023-09-22 00:21] LABS: Urine Bacteria None Seen /hpf (None Seen)
[2023-09-22 00:41] LABS: Urine Blood Negative /uL (Negative); Urine Clarity Clear (Clear); Urine Color Yellow (Yellow); Urine Protein, UAD Negative (Negative); Urine Specific Gravity 1.009 (1.001-1.035); Urine Urobilinogen Normal (Negative); Urine WBC 1 /hpf (0 - 3); Urine pH 5.5 (5.0-9.0)
[2023-09-22] MEDS: SODIUM CHLORIDE 0.9% 500 ML IV ONE (01:54)
[2023-09-22] MEDS: ALBUMIN 25% 100 ML IV ONE (03:21)
[2023-09-22 06:40] LABS: Eosinophils # (auto) 0.1 10 ^3/uL (0-0.8); Monocytes # (auto) 1.2 10 ^3/uL (0-1.3); Monocytes % (auto) 10.8 % (0.0-12.0); White Blood Cell 10.7 10^3/uL (4.4-10.8)
[2023-09-22 06:46] LABS: Chloride 106 mmol/L (98-107); Potassium 3.7 mmol/L (3.5-5.1); Sodium 137 mmol/L (136-145)
[2023-09-22 06:47] LABS: Anion Gap 6 (5-15); Basophils # (auto) 0 10 ^3/uL (0-0.2); Basophils % (auto) 0.4 % (0.0-2.0); Calcium 7.6 mg/dL (8.5-10.1); Carbon Dioxide 25 mmol/L (20-30); Eosinophils % (auto) 0.8 % (0.0-7.0); Hematocrit 18.2 % (41.0-53.0); Lymphocytes # (auto) 2.5 10 ^3/uL (0.4-5.4); Lymphocytes % (auto) 22.9 % (10.0-50.0); Mean Corpuscular Hemoglobin 34.6 pg (28.0-32.0); Mean Corpuscular Hgb Conc. 35.2 g/dL (32.0-36.0); Mean Corpuscular Volume 98.2 fL (80.0-100.0); Neutrophils % (auto) 65.1 % (37.0-80.0); Red Blood Cells 1.86 10^6/uL (4.5-5.90)
[2023-09-22 06:49] LABS: Red Cell Distribution Width 22.7 % (11.8-14.3)
[2023-09-22 06:51] LABS: Hemoglobin 6.4 g/dL (13.5-17.5)
[2023-09-22 06:52] LABS: Glucose 108 mg/dL (74-106)
[2023-09-22 06:53] LABS: BUN/Creatinine Ratio 12.1 (10.0-20.0); Blood Urea Nitrogen 8 mg/dL (9-23)
[2023-09-22] MEDS: FERROUS SULFATE 325mg EC TAB PO SCH (09:54)
[2023-09-22] MEDS: PANTOPRAZOLE 40 MG TAB PO SCH (09:55)
[2023-09-22] MEDS: FUROSEMIDE 40 MG TAB PO SCH (09:55)
[2023-09-22] MEDS: MIDODRINE HCL 10 MG TAB PO SCH (12:00)
[2023-09-22] MEDS: MIDODRINE HCL 10 MG TAB PO ONE (12:09)
[2023-09-22] MEDS: phytonadione 10 MG in SODIUM CHL 0.9% 50 ML IV ONE (21:35)
[2023-09-23 01:00] VITALS: BP 96/52; PULSE 73; RESP 16; TEMP 98; O2SAT 93
[2023-09-23 05:00] VITALS: BP 92/58; PULSE 62; RESP 14; TEMP 98.3; O2SAT 96
[2023-09-23 06:05] LABS: Basophils # (auto) 0.1 10 ^3/uL (0-0.2); Basophils % (auto) 0.8 % (0.0-2.0); Eosinophils # (auto) 0.1 10 ^3/uL (0-0.8); Hemoglobin 7.7 g/dL (13.5-17.5); Nucleated Red Blood Cells % 0.1 %; White Blood Cell 12.3 10^3/uL (4.4-10.8)
[2023-09-23 06:07] LABS: Eosinophils % (auto) 1.1 % (0.0-7.0); Hematocrit 22.5 % (41.0-53.0); Mean Corpuscular Hemoglobin 33.5 pg (28.0-32.0); Mean Corpuscular Hgb Conc. 34.3 g/dL (32.0-36.0); Mean Corpuscular Volume 97.8 fL (80.0-100.0); Monocytes # (auto) 1.2 10 ^3/uL (0-1.3); Monocytes % (auto) 9.5 % (0.0-12.0); Neutrophils # (auto) 7.9 10 ^3/uL (1.6-8.6); Neutrophils % (auto) 64.6 % (37.0-80.0)
[2023-09-23 06:13] LABS: INR 1.71 (0.9-1.15); Prothrombin Time 17.4 sec (9.3-11.8)
[2023-09-23 06:29] LABS: Alkaline Phosphatase 133 U/L (46-116); Anion Gap 5 (5-15); Blood Urea Nitrogen 8 mg/dL (9-23); Calcium 7.6 mg/dL (8.5-10.1); Carbon Dioxide 26 mmol/L (20-30); Chloride 105 mmol/L (98-107); Potassium 3.7 mmol/L (3.5-5.1); Sodium 136 mmol/L (136-145)
[2023-09-23 06:30] LABS: Aspartate Aminotransferase 32 U/L (13-40)
[2023-09-23 06:31] LABS: Albumin 2.4 g/dL (3.2-4.8); Bilirubin, Total 6.3 mg/dL (0.2-1.0); Total Protein 5.9 g/dL (5.7-8.2)
[2023-09-23 06:33] LABS: BUN/Creatinine Ratio 13.3 (10.0-20.0); Glucose 106 mg/dL (74-106)
[2023-09-23 06:41] LABS: Alanine Aminotransferase < 9 U/L (7-40)
[2023-09-23 08:15] VITALS: PULSE 66; RESP 20
[2023-09-23 09:06] LABS: Protein, Body Fluid 1.4 g/dL (.)
[2023-09-23 09:24] VITALS: BP 106/65; PULSE 80; RESP 16; TEMP 98.4; O2SAT 95
[2023-09-23 10:03] VITALS: O2SAT 100
[2023-09-23] MEDS ORDERED: MID10T PO (12:59)
[2023-09-23] MEDS ORDERED: FURO40TA4 PO (12:59)
[2023-09-23] MEDS ORDERED: CEPH250C PO (12:59)
[2023-09-23] MEDS ORDERED: PROP1TAB53 PO (12:59)
[2023-09-23] MEDS ORDERED: SPIR100T4 PO (17:38)
== END 2023-09-23 15:25 | disposition home or self-care (01) | DRG 720 ==
LOC: EDBD 12:06 → ER 12:06 → TELE 17:12 → TELE-WESTW 21:18
PROVIDERS: ADMIT Internal Medicine; ATTEND Emergency Medicine
PROC: 0W9G3ZZ Drainage of Peritoneal Cavity, Percutaneous Approach (ICD-10-PCS; principal; 2023-09-21)
PROC: 30233N1 Transfusion of Nonautologous Red Blood Cells into Peripheral Vein, Percutaneous Approach (ICD-10-PCS; 2023-09-22)
DX: A41.50 Gram-negative sepsis, unspecified (principal); J96.01 Acute respiratory failure with hypoxia; J15.69 Pneumonia due to other Gram-negative bacteria; E87.20 Acidosis, unspecified; D68.9 Coagulation defect, unspecified; J15.9 Unspecified bacterial pneumonia; K70.31 Alcoholic cirrhosis of liver with ascites; E88.09 Other disorders of plasma-protein metabolism, not elsewhere classified; D63.8 Anemia in other chronic diseases classified elsewhere; F17.200 Nicotine dependence, unspecified, uncomplicated; F10.10 Alcohol abuse, uncomplicated; Y90.9 Presence of alcohol in blood, level not specified; Z71.6 Tobacco abuse counseling; Z88.0 Allergy status to penicillin; Z71.41 Alcohol abuse counseling and surveillance of alcoholic
CPT/HCPCS: 36415; 49083; 71045; 76705; 76942; 80048; 80053; 80320; 81001; 82040; 83605; 83880; 83986; 84484; 85025; 85610; 85730; 86850; 86900; 86901; 86920; 87040; 87205; 89051; 93005; C9113; G0378; J3430; P9047

== ENCOUNTER 2023-10-24 17:16 | Inpatient (IN) | payer MEDICAID ==
[~2023-10-24] VITALS: Ht 175.3 cm; Wt 69.6 kg
[~2023-10-24 17:16] MED LIST changes: +ASCO500T6 PO; +CEPH250C PO; +FERR325T20 PO; +FURO40TA4 PO; +MID10T PO; +PROP1TAB51 PO; +PROP1TAB53 PO; +SENN-105 PO; +SPIR100T4 PO; -SPIR25TA PO
[2023-10-24 19:47] LABS: Basophils # (auto) 0.2 10 ^3/uL (0-0.2); Hemoglobin 10.2 g/dL (13.5-17.5); Monocytes # (auto) 1.2 10 ^3/uL (0-1.3); Red Cell Distribution Width 15.8 % (11.8-14.3); White Blood Cell 15.4 10^3/uL (4.4-10.8)
[2023-10-24 19:48] LABS: Eosinophils # (auto) 0.1 10 ^3/uL (0-0.8); Hematocrit 28.5 % (41.0-53.0); Lymphocytes # (auto) 4.8 10 ^3/uL (0.4-5.4); Lymphocytes % (auto) 31.1 % (10.0-50.0); Mean Corpuscular Hgb Conc. 35.7 g/dL (32.0-36.0); Mean Corpuscular Volume 114.7 fL (80.0-100.0); Monocytes % (auto) 7.7 % (0.0-12.0); Neutrophils # (auto) 9.1 10 ^3/uL (1.6-8.6); Neutrophils % (auto) 59.2 % (37.0-80.0); Nucleated Red Blood Cells % 0.1 %; Red Blood Cells 2.49 10^6/uL (4.5-5.90)
[2023-10-24 20:03] LABS: Albumin 2.5 g/dL (3.2-4.8); Alkaline Phosphatase 231 U/L (46-116); Anion Gap 9 (5-15); Aspartate Aminotransferase 29 U/L (13-40); Bilirubin, Total 6.2 mg/dL (0.2-1.0); Calcium 8.2 mg/dL (8.7-10.4); Carbon Dioxide 25 mmol/L (20-30); Chloride 104 mmol/L (98-107); Glucose 110 mg/dL (74-106); Potassium 2.7 mmol/L (3.5-5.1); Sodium 138 mmol/L (136-145); Total Protein 8.8 g/dL (5.7-8.2)
[2023-10-24 20:05] LABS: INR 1.58 (0.9-1.15); Partial Thromboplastin Time 35.9 SEC (24.5-34.5); Prothrombin Time 16.2 sec (9.3-11.8)
[2023-10-24 20:07] LABS: Urine Bacteria None Seen /hpf (None Seen)
[2023-10-24 20:07] LABS: Alanine Aminotransferase < 9 U/L (7-40); Blood Urea Nitrogen < 5 mg/dL (9-23)
[2023-10-24 20:21] LABS: Urine Blood Negative /uL (Negative); Urine Clarity Clear (Clear); Urine Color Dark-Yellow (Yellow); Urine Hyaline Cast FEW /lpf (0 - 2); Urine Mucus FEW (None Seen); Urine Protein, UAD TRACE (Negative); Urine Urobilinogen 4 mg/dL (Negative); Urine WBC 4 /hpf (0 - 3)
[2023-10-24] MEDS ORDERED: ONDANSETRON HCL 4 MG/2 ML VIAL IV PRN (20:45)
[2023-10-24] MEDS ORDERED: TEMAZEPAM 15 MG CAP PO PRN (20:45)
[2023-10-24] MEDS: LACTULOSE 20Gm/30ML SOLN PO SCH (22:00)
[2023-10-24] MEDS: PROPRANOLOL HCL 20 MG TAB PO SCH (23:04)
[2023-10-24] MEDS: PANTOPRAZOLE 40 MG/10 ML VIAL INJ IV ONE (23:15)
[2023-10-25] VITALS (10 sets, daily range): BP systolic 99–116; BP diastolic 39–67; PULSE 65–90; RESP 16–19; TEMP 98–99.3; O2SAT 90–100
[2023-10-25 01:08] LABS: Hematocrit 24.5 % (41.0-53.0); Hemoglobin 8.5 g/dL (13.5-17.5)
[2023-10-25] MEDS: MIDODRINE HCL 10 MG TAB PO SCH (05:43)
[2023-10-25] MEDS: POTASSIUM CHL 20 Meq TABLET PO ONE ×2 (05:43→13:04)
[2023-10-25 06:34] LABS: Basophils # (auto) 0.1 10 ^3/uL (0-0.2); Eosinophils # (auto) 0.1 10 ^3/uL (0-0.8); Hemoglobin 8.8 g/dL (13.5-17.5); Lymphocytes # (auto) 2.4 10 ^3/uL (0.4-5.4); Monocytes # (auto) 0.9 10 ^3/uL (0-1.3); Neutrophils # (auto) 6.5 10 ^3/uL (1.6-8.6)
[2023-10-25 06:36] LABS: Eosinophils % (auto) 1.4 % (0.0-7.0); Lymphocytes % (auto) 24.1 % (10.0-50.0); Mean Corpuscular Hemoglobin 40.4 pg (28.0-32.0); Mean Corpuscular Hgb Conc. 35.4 g/dL (32.0-36.0); Mean Corpuscular Volume 114.2 fL (80.0-100.0); Neutrophils % (auto) 64.5 % (37.0-80.0); Nucleated Red Blood Cells % 0.1 %; Red Blood Cells 2.18 10^6/uL (4.5-5.90); Red Cell Distribution Width 15.3 % (11.8-14.3)
[2023-10-25 06:43] LABS: Albumin 2.2 g/dL (3.2-4.8); Alkaline Phosphatase 203 U/L (46-116); Anion Gap 5 (5-15); Aspartate Aminotransferase 25 U/L (13-40); Bilirubin, Total 4.8 mg/dL (0.2-1.0); Calcium 7.6 mg/dL (8.5-10.1); Carbon Dioxide 27 mmol/L (20-30); Chloride 106 mmol/L (98-107); Glucose 109 mg/dL (74-106); Potassium 2.8 mmol/L (3.5-5.1); Sodium 138 mmol/L (136-145); Total Protein 7.3 g/dL (5.7-8.2)
[2023-10-25 06:49] LABS: Alanine Aminotransferase < 9 U/L (7-40); BUN/Creatinine Ratio 6.8 (10.0-20.0); Blood Urea Nitrogen < 5 mg/dL (9-23)
[2023-10-25] MEDS: PANTOPRAZOLE 40 MG/10 ML VIAL INJ IV SCH (07:08)
[2023-10-25] MEDS: FUROSEMIDE 40 MG TAB PO SCH (09:33)
[2023-10-25] MEDS: FERROUS SULFATE 325mg EC TAB PO SCH (09:33)
[2023-10-25] MEDS: SPIRONOLACTONE 25 MG TAB PO SCH (09:33)
[2023-10-25] MEDS ORDERED: PANTOPRAZOLE 40 MG/10 ML VIAL INJ IV SCH (10:00)
[2023-10-25] MEDS: NICOTINE 21MG/24 HR TOPICAL PATCH TD ONE (10:30)
[2023-10-25] MEDS: THIAMINE 100mg/ml INJ (200mg/2ml VIAL) IV ONE (13:05)
[2023-10-25] MEDS: FOLIC ACID 1 MG in D5W 5% 50 ML INJ ONE (13:28)
[2023-10-25] MEDS: POTASSIUM CHLORIDE 40 MEQ, LIDOCAINE 1% (LOCAL ANESTH.) 4 ML in SODIUM CHL 0.9% 250 ML IV ONE (14:20)
[2023-10-25 14:57] LABS: Body Fluid pH 8
[2023-10-25 17:30] LABS: Body Fluid Polymorphonuclear 20 % (0-25); Body Fluid Red Blood Cells 288 CUMM (0-2000); Body Fluid White Blood Cells 350 CUMM (0-200)
[2023-10-26 01:00] VITALS: BP 94/48; PULSE 66; RESP 18; TEMP 98; O2SAT 98
[2023-10-26 05:00] VITALS: BP 93/50; PULSE 62; RESP 18; TEMP 98.5; O2SAT 98
[2023-10-26 08:15] VITALS: PULSE 63; RESP 18; O2SAT 100
[2023-10-26 09:00] VITALS: BP 104/57; PULSE 63; RESP 18; TEMP 97.9; O2SAT 100
[2023-10-26 09:12] LABS: Basophils # (auto) 0.1 10 ^3/uL (0-0.2); Eosinophils # (auto) 0.1 10 ^3/uL (0-0.8); Lymphocytes # (auto) 2.9 10 ^3/uL (0.4-5.4); Neutrophils # (auto) 6.2 10 ^3/uL (1.6-8.6)
[2023-10-26 09:15] LABS: Basophils % (auto) 1.2 % (0.0-2.0); Eosinophils % (auto) 0.8 % (0.0-7.0); Hematocrit 25.2 % (41.0-53.0); Hemoglobin 8.8 g/dL (13.5-17.5); Mean Corpuscular Hemoglobin 40.6 pg (28.0-32.0); Mean Corpuscular Volume 115.9 fL (80.0-100.0); Monocytes % (auto) 9.5 % (0.0-12.0); Neutrophils % (auto) 60.5 % (37.0-80.0); Red Blood Cells 2.17 10^6/uL (4.5-5.90); Red Cell Distribution Width 15.2 % (11.8-14.3); White Blood Cell 10.2 10^3/uL (4.4-10.8)
[2023-10-26 09:33] LABS: Albumin 2.1 g/dL (3.2-4.8); Alkaline Phosphatase 198 U/L (46-116); Anion Gap 3 (5-15); Aspartate Aminotransferase 22 U/L (13-40); BUN/Creatinine Ratio 8.2 (10.0-20.0); Blood Urea Nitrogen 5 mg/dL (9-23); Calcium 7.7 mg/dL (8.5-10.1); Carbon Dioxide 27 mmol/L (20-30); Chloride 104 mmol/L (98-107); Glucose 102 mg/dL (74-106); Magnesium 1.1 mg/dL (1.6-2.6); Potassium 3.8 mmol/L (3.5-5.1); Sodium 134 mmol/L (136-145)
[2023-10-26 09:34] LABS: Alanine Aminotransferase < 9 U/L (7-40); Bilirubin, Total 5.5 mg/dL (0.2-1.0)
[2023-10-26] MEDS ORDERED: FOLIC ACID 1 MG in D5W 5% 50 ML INJ SCH (10:00)
[2023-10-26] MEDS: NICOTINE 21MG/24 HR TOPICAL PATCH TD SCH (10:00)
[2023-10-26] MEDS: THIAMINE 100mg/ml INJ (200mg/2ml VIAL) IV SCH (10:17)
[2023-10-26 10:32] LABS: Protein, Body Fluid 3.3 g/dL (.)
[2023-10-26 12:11] VITALS: BP 136/83; PULSE 61; RESP 18; TEMP 98; O2SAT 97
[2023-10-26 12:34] VITALS: BP 136/83; PULSE 61; RESP 18; TEMP 98; O2SAT 97
== END 2023-10-26 15:10 | disposition home or self-care (01) | DRG 280 ==
LOC: ER 17:16 → EDBD 17:16 → OVERFLOW 20:46 → CENTRAL 10-25 03:33
PROVIDERS: ADMIT Nurse Practitioner; ATTEND Internal Medicine
PROC: 0W9G3ZZ Drainage of Peritoneal Cavity, Percutaneous Approach (ICD-10-PCS; principal; 2023-10-25)
DX: K70.31 Alcoholic cirrhosis of liver with ascites (principal); K70.40 Alcoholic hepatic failure without coma; D69.6 Thrombocytopenia, unspecified; E44.0 Moderate protein-calorie malnutrition; D64.9 Anemia, unspecified; E87.6 Hypokalemia; F17.210 Nicotine dependence, cigarettes, uncomplicated; I10 Essential (primary) hypertension; F10.10 Alcohol abuse, uncomplicated; Z68.22 Body mass index [BMI] 22.0-22.9, adult; Z88.0 Allergy status to penicillin; Z83.3 Family history of diabetes mellitus; Y90.9 Presence of alcohol in blood, level not specified
CPT/HCPCS: 36415; 49083; 76705; 76942; 80053; 81001; 82140; 82270; 83735; 83986; 85014; 85018; 85025; 85610; 85730; 86850; 86900; 86901; 87205; 89051; 99291; C9113; G0378; J2001; J7060